=== PATIENT | female | born 1945 | race Caucasian/White ===

== ENCOUNTER 2020-01-27 11:31 | Observation (INO) | payer MEDICARE, OTHER ==
[2020-01-27] MEDS ORDERED: HYDROcodone/Acetaminophen 5/325 mg Tablet PO PRN ×4 (12:00→17:51)
[2020-01-27] MEDS ORDERED: Ondansetron PF 4 MG/2 ML Vial IVP PRN ×2 (12:00→17:49)
[2020-01-27] MEDS ORDERED: Acetaminophen 325 MG TAB PO PRN ×2 (12:00→17:50)
[2020-01-27] MEDS ORDERED: Ondansetron ODT 4 MG TAB SL PRN ×2 (12:00→17:50)
[2020-01-27 12:12] LABS: #Lymphocytes 2.4 thou/uL (1.20-3.40); #Monocytes 0.6 thou/uL (0.11-0.59); #Neutrophils 11.7 thou/uL (1.40-6.50); %Basophils 0.3 % (0.0-1.0); %Eosinophils 0.3 % (0.0-10.0); %Lymphocytes 16.4 % (21.0-51.0); %Monocytes 4.3 % (0.0-10.0); %Neutrophils 78.7 % (42.0-75.0); Hemoglobin 14.1 g/dL (12.0-16.0); Mean Corpuscular HGB CONC 32.7 g/dL (32.0-36.0); Mean Corpuscular Hemoglobin 27.9 pg (27.0-31.0); Mean Corpuscular Volume 85.4 fL (78.0-98.0); Platelet Count 349 thou/uL (130-400); RBC Distribution Width 13.3 % (11.5-14.5); Red Blood Cell (RBC) Count 5.04 mill/uL (4.20-5.40); White Blood Cell (WBC) Count 14.9 thou/uL (4.8-10.8)
[2020-01-27 12:35] LABS: ALT (SGPT) 13 U/L (8-55); AST (SGOT) 15 U/L (5-34); Albumin 4.2 g/dL (3.4-4.8); Alkaline Phosphatase 131 U/L (40-110); Anion Gap 14 mmol/L (10-20); BUN (Urea Nitrogen) 13 mg/dL (9.8-20.1); Bilirubin, Total 0.8 mg/dL (0.2-1.2); Calc. Creatinine Clearance 0 mL/min (70-130); Calcium 10.5 mg/dL (7.8-10.44); Carbon Dioxide 21 mmol/L (23-31); Chloride 102 mmol/L (98-107); Estimated GFR-MDRD 70; Globulin 3.7 g/dL (2.4-3.5); Glucose 157 mg/dL (83-110); Lipase 37 U/L (8-78); Potassium 3.9 mmol/L (3.5-5.1); Protein, Total 7.9 g/dL (6.0-8.3); Sodium 133 mmol/L (136-145)
[2020-01-27] MEDS ORDERED: Morphine 4 MG/ML VIAL ONE ×2 (12:47→14:30)
[2020-01-27] MEDS ORDERED: Ondansetron PF 4 MG/2 ML Vial ONE (12:47)
[2020-01-27 12:53] LABS: Bilirubin Negative (Negative); Blood, Urine Negative (Negative); Clarity Clear (Clear); Glucose, Urine (Dipstick) Normal (Negative); Ketone, Urine Trace mg/dL (Negative); Leukocyte 75 Leu/uL (Negative); Nitrite 1+ (Negative); Protein, Urine (Dipstick) Negative (Neg-Trace); RBC/HPF 0-3 HPF (0-3); Specific Gravity, Urine 1.022 (1.002-1.036); Squamous Epithelial 0-3 HPF (0-3); Urobilinogen Normal mg/dL (Less than 2); pH, Urine 6.5 (5.0-9.0)
[2020-01-27 12:54] LABS: Bacteria/HPF 1+ HPF (None Seen)
--- NOTE | 2020-01-27 14:29 | ULT ---
GALLBLADDER ULTRASOUND: Date: 01/27/2020 HISTORY: Abdominal pain. Nausea and vomiting. FINDINGS: Multiple shadowing gallstones are present without gallbladder wall thickening or pericholecystic flui d. The common duct measures 4.0 mm in diameter. The tail of the pancreas is not visualized. The remai nder of the pancreas is otherwise normal. A transplanted right kidney is present, which has a normal appearance. No free fluid is seen. IMPRESSION: Cholelithiasis. POS: ALLEY
[2020-01-27] MEDS ORDERED: Morphine 4 MG/ML VIAL SLOW IVP PRN ×2 (16:02→17:52)
[2020-01-27 16:11] VITALS: BMI 28.3
[2020-01-27] MEDS: Sodium Chloride 0.9% 1,000 ML IV SCH ×2 (16:56→23:43)
[2020-01-28 06:13] LABS: #Lymphocytes 1.6 thou/uL (1.20-3.40); #Monocytes 1.3 thou/uL (0.11-0.59); #Neutrophils 9.5 thou/uL (1.40-6.50); %Basophils 0.2 % (0.0-1.0); %Eosinophils 0.2 % (0.0-10.0); %Lymphocytes 12.5 % (21.0-51.0); %Monocytes 10.5 % (0.0-10.0); %Neutrophils 76.6 % (42.0-75.0); Hemoglobin 12.7 g/dL (12.0-16.0); Mean Corpuscular HGB CONC 32.7 g/dL (32.0-36.0); Mean Corpuscular Hemoglobin 27.8 pg (27.0-31.0); Mean Platelet Volume 8.3 fL (7.4-10.4); Platelet Count 247 thou/uL (130-400); RBC Distribution Width 13.3 % (11.5-14.5); Red Blood Cell (RBC) Count 4.56 mill/uL (4.20-5.40); White Blood Cell (WBC) Count 12.4 thou/uL (4.8-10.8)
[2020-01-28 06:31] LABS: Anion Gap 10 mmol/L (10-20); BUN (Urea Nitrogen) 9 mg/dL (9.8-20.1); Calc. Creatinine Clearance 78 mL/min (70-130); Calcium 8.8 mg/dL (7.8-10.44); Carbon Dioxide 22 mmol/L (23-31); Chloride 103 mmol/L (98-107); Estimated GFR-MDRD 85; Glucose 108 mg/dL (83-110); Potassium 4.2 mmol/L (3.5-5.1); Sodium 131 mmol/L (136-145)
[2020-01-28] MEDS ORDERED: Propranolol 60 MG TAB PO SCH (09:00)
[2020-01-28] MEDS ORDERED: predniSONE 5 MG TAB PO SCH (09:00)
[2020-01-28] MEDS ORDERED: FLUoxetine HCl 20 MG CAP PO SCH (09:00)
[2020-01-28] MEDS ORDERED: Tacrolimus 1 MG CAP PO SCH (09:00)
[2020-01-28] MEDS ORDERED: Mycophenolate 250 MG CAP PO SCH (09:00)
--- NOTE | 2020-01-28 10:19 | HP ---
CHIEF COMPLAINT: Abdominal pain. HISTORY OF PRESENT ILLNESS: Ms. Costa is a 74-year-old woman, who I saw in my clinic last month for intermittent abdominal and lower chest pain. She had 2 episodes of severe pain radiating from her epigastrium up into her shoulder, back, and arm after eating. They were so severe, she thought she was having a heart attack. She went to the [facility] in [place] after both episodes, and troponins, EKG, and stress testing did not indicate any cardiac problems. She has had intermittent episodes of pain on the right side of her abdomen as well, so her primary care doctor ordered a gallbladder ultrasound, which showed stones. She did not have any fevers, chills, nausea, or vomiting with those episodes. She was actually on the OR schedule for a laparoscopic cholecystectomy last month, but had to cancel her surgery because she fell and broke a couple of ribs and was having a lot of pain with breathing. She has since improved from a respiratory standpoint and was going to call and reschedule her surgery when yesterday she had another severe attack. The pain was in her lower chest area and epigastric area, and she did have nausea and vomiting with this episode. She came to the emergency room because she was unable to tolerate the pain and was admitted because they could not get her pain under control. She is feeling better this morning, although she is still operator brandy to palpation in the right upper quadrant. She is not too nauseated , but she has not had anything to eat or drink since yesterday. She denies any fevers or chills with this episode. She denies any respiratory symptoms. PAST MEDICAL HISTORY: 1. Renal failure, status post renal transplant. 2. Asthma. 3. High blood pressure. OUTPATIENT MEDICATIONS: Include; 1. Fluoxetine 20 mg p.o. daily. 2. Mycophenolate 500 mg 2 tablets twice a day. 3. Prednisone 5 mg p.o. daily. 4. Magnesium oxide 400 mg daily. 5. Pravastatin 20 mg p.o. daily. 6. Vitamin D daily. 7. Tacrolimus 1 mg p.o. b.i.d. 8. Propranolol 60 mg p.o. b.i.d. ALLERGIES: SHE REPORTS RASH WITH PENICILLIN AND IODINE. SOCIAL HISTORY: She does not smoke, drink, or use illicit drugs. She lives with her . PAST SURGICAL HISTORY: Right kidney transplant. PHYSICAL EXAMINATION: VITAL SIGNS: The patient is afebrile since her admission, heart rate 75, respirations 18, 95% saturated on room air, blood pressure 101/61. GENERAL: Reveals a healthy elderly woman, in no acute distress. She is not flushed or toxic in appearance. She is not jaundiced or icteric. HEENT: Unremarkable. NECK: Supple without lymphadenopathy or thyroid nodules. HEART: Regular in its rate and rhythm without murmurs, rubs, or gallops. LUNGS: Clear to auscultation bilaterally. ABDOMEN: Soft and nondistended with a healed right lower quadrant incision. She is tender to palpation in the right upper quadrant and epigastrium, but does not exhibit rigidity, rebound, or guarding. No palpable masses or hernias. EXTREMITIES: Warm and well perfused without edema. NEURO: No focal deficits. PSYCHIATRIC: Alert, oriented, and appropriate. LABORATORY DATA: White count is elevated at 12.4, down from 14.9 in the ER yesterday. Electrolytes are normal. BUN and creatinine are normal. Her alkaline phosphatase is slightly elevated at 131, but other LFTs are normal. Ultrasound in the ER yesterday showed gallbladder stones, but no pericholecystic fluid and a normal common bile duct caliber. Her transplanted kidney has a normal appearance. ASSESSMENT AND PLAN: Cholelithiasis and cholecystitis with acute episode yesterday requiring admission. I have recommended laparoscopic cholecystectomy and since her alkaline phosphatase is mildly elevated, I would also do a cholangiogram, although I feel that this is most likely not related to her gallbladder. The procedure and its inherent risks were discussed with the patient. She understands and accepts these risks and wishes to proceed. She is on scheduled antibiotics. All of her questions were answered. COVID testing has been requested. She is only on low-dose prednisone so stress dose steroids should not be necessary. Job ID: [id number] [facility]
[2020-01-28] MEDS ORDERED: Promethazine HCl 25 MG/ML VIAL IM PRN (12:36)
[2020-01-28] MEDS ORDERED: Ondansetron HCl/PF 4 MG/2 ML Vial IVP PRN (12:36)
[2020-01-28] MEDS ORDERED: Promethazine HCl 25 MG/ML VIAL SLOW IVP PRN (12:36)
[2020-01-28] MEDS ORDERED: Meperidine HCl/PF 25 MG/ML VIAL SLOW IVP PRN (12:36)
[2020-01-28] MEDS ORDERED: Ondansetron PF 4 MG/2 ML Vial ONE (12:50)
[2020-01-28] MEDS ORDERED: PROPOFOL 200 MG/20 ML VIAL ONE (12:50)
[2020-01-28] MEDS ORDERED: Rocuronium Bromide 10 MG/ML (10ML VIAL) ONE (12:50)
[2020-01-28] MEDS ORDERED: Lidocaine 1% PF 5 ML VIAL ONE (12:50)
[2020-01-28] MEDS ORDERED: Hydrocortisone Sod Succ/PF 100 mg/2 ml Vial ONE (12:53)
[2020-01-28] MEDS ORDERED: Bupivacaine 0.25% HCL 30 ML VIAL ONE (13:05)
[2020-01-28] MEDS ORDERED: EPINEPHrine 1 MG/ML AMP ONE (13:05)
[2020-01-28] MEDS ORDERED: Iopamidol 50 ML FS ONE (13:41)
[2020-01-28] MEDS ORDERED: Fentanyl 100 MCG/2 ML VIAL ONE (13:46)
[2020-01-28] MEDS ORDERED: SUGAMMADEX SODIUM 200 MG/2 ML VIAL ONE (15:07)
[2020-01-28 16:14] VITALS: BP 127/75; TEMP 97.8
[2020-01-28] MEDS ORDERED: traMADol HCl 50 MG TAB PO PRN (16:28)
[2020-01-28] MEDS ORDERED: Prevnar 13-Val Conj/PF 0.5 ML SYRINGE IM ONE (16:30)
[2020-01-28] MEDS ORDERED: Acetaminophen 325 MG TAB PO PRN (16:30)
[2020-01-28] MEDS ORDERED: HYDROcodone/Acetaminophen 5/325 mg Tablet PO PRN (16:30)
[2020-01-28 16:55] LABS: SARS-CoV-2 MS2 Positive; SARS-CoV-2 N Gene Negative; SARS-CoV-2 S Gene Negative; SARS-CoV-2 orf1ab Negative
--- NOTE | 2020-01-31 16:30 | PDOC.OP ---
Operative Note - Operative Note Operative Note: DATE OF PROCEDURE: 01/27/2020 PROCEDURES: Laparoscopic cholecystectomy with intraoperative cholangiogram. SURGEON: Bryce Gutierrez M.D. PREOPERATIVE DIAGNOSIS: Cholelithiasis and cholecystitis POSTOPERATIVE DIAGNOSIS: Cholelithiasis and cholecystitis FINDINGS: Distended chronically inflamed gallbladder with acute and chronic omental adhesions. Normal intraoperative cholangiogram. HISTORY: Patient with signs and symptoms of biliary colic, admitted because of acute worsening of symptoms felt to be consistent with acute cholecystitis. Laparoscopic cholecystectomy was recommended for symptomatic relief and prevention of future episodes. Intraoperative cholangiogram was also recommended due to elevation of alkaline phosphatase on preop lab work. PROCEDURE: After informed consent was obtained and appropriate preoperative antibiotics were administered, the patient was taken to the operating room and placed in the supine position and general endotracheal anesthesia was administered. The stomach was decompressed with an OG tube and the abdomen was prepped and draped in standard sterile fashion. Local anesthesia was infused to the skin and subcutaneous tissues at the umbilical level. A transverse skin incision was made. The fascia was elevated and a Veress needle was placed into the abdominal cavity without difficulty. Opening pressure was less than 5 and carbon dioxide gas easily insufflated to an intra-abdominal pressure of 15, which the patient tolerated well. The Veress needle was withdrawn and a Orestes port advanced under direct vision. The abdominal cavity was carefully examined. There was no evidence of Veress needle or of trocar injury. Local anesthesia was infused to the skin and subcutaneous tissues at the epigastric, right upper quadrant, and right lateral abdominal sites and trocars were placed under direct vision of the laparoscope. The fundus of the gallbladder was initially too taut to grasp so this was aspirated with removal of a large amount of clear green bile. This was sent for Gram stain and culture. After removing the bile the fundus was able to be grasped and retracted superiorly. There were extensive omental adhesions to the gallbladder nearly obscuring it. These were stripped inferiorly through the avascular plane using careful electrocautery as necessary until the infundibulum was exposed. The infundibulum was grasped and retracted laterally. The serosa was stripped inferiorly at the level of the neck of the gallbladder exposing the cystic duct and artery which were traced clearly to their insertion in the gallbladder. These were dissected free circumferentially and the cystic duct was clipped at the level of the neck of the gallbladder. The cystic artery was clipped but not divided. An incision was made in the cystic duct inferior to the clip and the cystic duct was palpated with no stones palpable. Clear bile was seen to flow from the cystic duct incision. A cholangiogram catheter was introduced and placed into the cystic duct and secured with a clip. A cholangiogram was obtained which showed an adequate length of cystic duct. There was normal filling of the common bile duct with free flow of contrast into the duodenum. There was normal retrograde flow into the common hepatic duct beyond the level of the bifurcation without filling defects. The cholangiogram catheter was removed and the cystic duct clipped below the incision in the cystic duct. The cystic duct was divided between these clips and the previously placed clip. The cystic artery was clipped and divided between the previously placed clips. The gallbladder was then dissected free of the gallbladder bed using hook electrocautery. Prior to complete removal of the gallbladder from the gallbladder bed, the area of the cystic duct and artery stumps was examined. The clips were in good position completely across these structures and there was no bleeding and no leakage of bile. The gallbladder was then placed into an EndoCatch bag and drawn out through the epigastric incision. The epigastric trocar was replaced and the operative site easily irrigated to clear. There was no significant bleeding or spillage of bile. The epigastric trocar was removed and the fascia closed under direct laparoscopic vision with a 0 Vicryl suture on a GraNee needle in a [id number] manner with excellent technical result. The right upper quadrant and right lateral abdominal trocars were removed and hemostasis verified. Carbon dioxide gas was allowed to desufflate through the umbilical trocar which was then removed. The skin incisions were closed with 4- 0 subcuticular Monocryl sutures and Dermabond dressings were placed. The patient was extubated and taken to the recovery room in good condition. There were no complications. ESTIMATED BLOOD LOSS: Minimal. SPECIMEN : Gallbladder and contents.
== END 2020-01-28 19:24 | disposition home or self-care (01) ==
LOC: ERS 11:31 → SURG A 13:19
PROVIDERS: ADMIT Surgery; ATTEND Surgery
PROC: 0FT44ZZ Resection of Gallbladder, Percutaneous Endoscopic Approach (ICD-10-PCS; principal; 2020-01-27)
PROC: BF031ZZ Plain Radiography of Gallbladder and Bile Ducts using Low Osmolar Contrast (ICD-10-PCS; 2020-01-27)
DX: K80.12 Calculus of gallbladder with acute and chronic cholecystitis without obstruction (principal); I10 Essential (primary) hypertension; E78.5 Hyperlipidemia, unspecified; J45.909 Unspecified asthma, uncomplicated; Z79.899 Other long term (current) drug therapy; Z88.0 Allergy status to penicillin; Z88.8 Allergy status to other drugs, medicaments and biological substances
CPT/HCPCS: 47532; 47563; 76705; 80048; 80053; 83690; 85025 ×2; 87070; 87075; 87205; 88304; 96361; 96374; 96375; 96376; 99285; J1610; U0003; 36415; 81003; 81015; 87077; 87635; 96365; G0378; J0171; J1720; J1956; J2270; J2405; J2704; J3010; J7507; J7517; Q9967; S0020

== ENCOUNTER 2020-10-29 10:13 | Outpatient (CLI) | payer MEDICARE | END 2020-10-29 10:14 | disposition home or self-care (01) | LOC: BICMAMMO 10:13 | PROVIDERS: ATTEND Internal Medicine Endocrinology, Diabetes & Metabolism | DX: M81.0 Age-related osteoporosis without current pathological fracture (principal) | CPT/HCPCS: 77080 ==

== ENCOUNTER 2020-11-01 20:13 | Emergency (ER) | payer MEDICARE ==
[2020-11-01] MEDS ORDERED: HYDROcodone/Acetaminophen 10/325 mg Tablet ONE (21:28)
== END 2020-11-01 23:19 | disposition home or self-care (01) ==
LOC: ERS 20:13
DX: M54.32 Sciatica, left side (principal); E78.5 Hyperlipidemia, unspecified; I10 Essential (primary) hypertension; M81.0 Age-related osteoporosis without current pathological fracture; Z79.899 Other long term (current) drug therapy
CPT/HCPCS: 72131; 72170

== ENCOUNTER 2021-03-05 09:06 | Outpatient (CLI) | payer MEDICARE ==
[2021-03-05 12:47] LABS: Hemoglobin 14.6 g/dL (12.0-15.5); Mean Corpuscular HGB CONC 31.5 g/dL (32.0-36.0); Mean Corpuscular Hemoglobin 26.6 pg (27.0-33.0); Mean Corpuscular Volume 84.5 fl (81.6-98.3); Mean Platelet Volume 10.7 fl (7.4-10.4); Platelet Count 349 10x3/uL (150-450); RBC Distribution Width 14.3 % (11.5-14.5); Red Blood Cell (RBC) Count 5.48 10x6/uL (3.90-5.03); White Blood Cell (WBC) Count 9.7 10x3/uL (3.5-10.5)
[2021-03-05 12:48] LABS: Anion Gap 15 mmol/L (10-20); BUN (Urea Nitrogen) 10 mg/dL (9.8-20.1); Calc. Creatinine Clearance 0 mL/min (70-130); Calcium 11.6 mg/dL (7.8-10.44); Carbon Dioxide 25 mmol/L (23-31); Chloride 103 mmol/L (98-107); Glucose 103 mg/dL (83-110); Potassium 4.9 mmol/L (3.5-5.1); Sodium 138 mmol/L (136-145)
[2021-03-06 01:29] LABS: SARS-CoV-2 PCR by NAA Not Detected (NotDetected)
== END 2021-03-05 09:07 | disposition home or self-care (01) ==
LOC: LABBT 09:06
PROVIDERS: ATTEND Neurological Surgery
DX: Z01.818 Encounter for other preprocedural examination (principal); M43.16 Spondylolisthesis, lumbar region; Z20.822 Contact with and (suspected) exposure to COVID-19
CPT/HCPCS: 80048; 85027; 93005; U0003; U0005; 93010

== ENCOUNTER 2021-03-10 05:52 | Day surgery (SDC) | payer MEDICARE ==
[2021-03-09 12:18] VITALS: BMI 29.9
[2021-03-10] MEDS ORDERED: Bupivacaine PF 0.5% 30 ML VIAL ONE (06:19)
[2021-03-10] MEDS ORDERED: EPINEPHrine 1 MG/ML AMP ONE (06:19)
[2021-03-10] MEDS ORDERED: Thrombin 5000 UNITS/5 ML VIAL ONE (06:19)
[2021-03-10] MEDS ORDERED: SUGAMMADEX SODIUM 200 MG/2 ML VIAL ONE (06:50)
[2021-03-10] MEDS ORDERED: Fentanyl 100 MCG/2 ML VIAL ONE ×2 (06:50→09:39)
[2021-03-10] MEDS ORDERED: Clindamycin/D5W 900 mg/50 ml Premix Bag ONE (06:51)
[2021-03-10] MEDS ORDERED: Levofloxacin 500 mg/D5W 100 ml Premix Bag ONE (06:51)
[2021-03-10] MEDS ORDERED: Ondansetron PF 4 MG/2 ML Vial ONE ×2 (07:05→11:06)
[2021-03-10] MEDS ORDERED: Lidocaine 1% PF 5 ML VIAL ONE (07:05)
[2021-03-10] MEDS ORDERED: PHENYLEPHRINE-NS 100 MCG/ML 10 ML SYRINGE ONE (07:05)
[2021-03-10] MEDS ORDERED: Rocuronium Bromide 10 MG/ML (10ML VIAL) ONE (07:05)
[2021-03-10] MEDS ORDERED: Glycopyrrolate 0.2 MG/ML 5 ML SYRINGE ONE (07:05)
[2021-03-10] MEDS ORDERED: PROPOFOL 200 MG/20 ML VIAL ONE (07:05)
[2021-03-10] MEDS ORDERED: HYDROcodone/Acetaminophen 5/325 mg Tablet ONE (11:09)
[2021-03-10] MEDS ORDERED: Ondansetron ODT 4 MG TAB ONE (12:32)
== END 2021-03-10 12:50 | disposition home or self-care (01) ==
LOC: SDC 05:52
PROVIDERS: ATTEND Neurological Surgery
PROC: 0SG3071 Fusion of Lumbosacral Joint with Autologous Tissue Substitute, Posterior Approach, Posterior Column, Open Approach (ICD-10-PCS; principal; 2021-03-10)
DX: M43.17 Spondylolisthesis, lumbosacral region (principal); M48.07 Spinal stenosis, lumbosacral region; M54.16 Radiculopathy, lumbar region; J45.909 Unspecified asthma, uncomplicated; I10 Essential (primary) hypertension; Z79.899 Other long term (current) drug therapy; Z88.0 Allergy status to penicillin; Z91.041 Radiographic dye allergy status; Z94.0 Kidney transplant status
CPT/HCPCS: 76000; C1713; C1768; J0171; J0690; J1956; J2405; J2704; J3010; J3490; Q0162; S0020

== ENCOUNTER 2021-05-07 00:47 | Emergency (ER) | payer MEDICARE ==
[2021-05-07 01:50] LABS: #Eosinphils 0.1 thou/uL (0.0-0.7); #Lymphocytes 3.4 thou/uL (1.20-3.40); #Neutrophils 5.8 thou/uL (1.40-6.50); %Basophils 0.2 % (0.0-1.0); %Eosinophils 1.2 % (0.0-10.0); %Lymphocytes 32.8 % (21.0-51.0); %Monocytes 9.6 % (0.0-10.0); %Neutrophils 56.3 % (42.0-75.0); Hemoglobin 12.8 g/dL (12.0-16.0); Mean Corpuscular HGB CONC 33.2 g/dL (32.0-36.0); Mean Corpuscular Hemoglobin 27.3 pg (27.0-31.0); Mean Corpuscular Volume 82.2 fL (78.0-98.0); Mean Platelet Volume 8.1 fL (7.4-10.4); Platelet Count 262 thou/uL (130-400); RBC Distribution Width 13.9 % (11.5-14.5); Red Blood Cell (RBC) Count 4.71 mill/uL (4.20-5.40); White Blood Cell (WBC) Count 10.2 thou/uL (4.8-10.8)
[2021-05-07 02:12] LABS: ALT (SGPT) 8 U/L (8-55); AST (SGOT) 13 U/L (5-34); Alkaline Phosphatase 129 U/L (40-110); Anion Gap 13 mmol/L (10-20); BUN (Urea Nitrogen) 12 mg/dL (9.8-20.1); Bilirubin, Total 0.3 mg/dL (0.2-1.2); Calc. Creatinine Clearance 0 mL/min (70-130); Calcium 10.3 mg/dL (7.8-10.44); Carbon Dioxide 22 mmol/L (23-31); Chloride 106 mmol/L (98-107); Globulin 3.4 g/dL (2.4-3.5); Glucose 120 mg/dL (83-110); Potassium 3.8 mmol/L (3.5-5.1); Protein, Total 7.4 g/dL (5.8-8.1); Sodium 137 mmol/L (136-145)
== END 2021-05-07 02:32 | disposition home or self-care (01) ==
LOC: ERS 00:47
DX: R07.9 Chest pain, unspecified (principal); E78.5 Hyperlipidemia, unspecified; I12.9 Hypertensive chronic kidney disease with stage 1 through stage 4 chronic kidney disease, or unspecified chronic kidney disease; N18.9 Chronic kidney disease, unspecified; M81.0 Age-related osteoporosis without current pathological fracture
CPT/HCPCS: 36415; 71045; 80053; 84484; 85025; 93005

== ENCOUNTER 2021-07-20 13:54 | Emergency (ER) | payer OTHER, MEDICARE | END 2021-07-20 17:07 | disposition home or self-care (01) | LOC: ERS 13:54 | DX: S93.602A Unspecified sprain of left foot, initial encounter (principal); W01.0XXA Fall on same level from slipping, tripping and stumbling without subsequent striking against object, initial encounter; E78.5 Hyperlipidemia, unspecified; I12.9 Hypertensive chronic kidney disease with stage 1 through stage 4 chronic kidney disease, or unspecified chronic kidney disease; N18.9 Chronic kidney disease, unspecified ==

== ENCOUNTER 2021-08-21 04:01 | Observation (INO) | payer MEDICARE ==
[2021-08-21] MEDS ORDERED: Nitroglycerin 2% Ointment 1 INCH/1 GM Packet ONE (04:29)
[2021-08-21 04:37] LABS: #Eosinphils 0.1 thou/uL (0.0-0.7); #Lymphocytes 2.8 thou/uL (1.20-3.40); #Monocytes 1.1 thou/uL (0.11-0.59); #Neutrophils 6.7 thou/uL (1.40-6.50); %Basophils 0.2 % (0.0-1.0); %Monocytes 10.1 % (0.0-10.0); %Neutrophils 62.7 % (42.0-75.0); Hemoglobin 13.3 g/dL (12.0-16.0); Mean Corpuscular Hemoglobin 27.3 pg (27.0-31.0); Mean Corpuscular Volume 82.6 fL (78.0-98.0); Mean Platelet Volume 7.5 fL (7.4-10.4); Platelet Count 280 thou/uL (130-400); RBC Distribution Width 14.7 % (11.5-14.5); Red Blood Cell (RBC) Count 4.89 mill/uL (4.20-5.40); White Blood Cell (WBC) Count 10.6 thou/uL (4.8-10.8)
[2021-08-21 04:59] LABS: ALT (SGPT) 16 U/L (8-55); AST (SGOT) 15 U/L (5-34); Alkaline Phosphatase 154 U/L (40-110); Anion Gap 12 mmol/L (10-20); BUN (Urea Nitrogen) 12 mg/dL (9.8-20.1); Bilirubin, Total 0.9 mg/dL (0.2-1.2); Calc. Creatinine Clearance 0 mL/min (70-130); Calcium 10.4 mg/dL (7.8-10.44); Carbon Dioxide 22 mmol/L (23-31); Chloride 104 mmol/L (98-107); Globulin 3.7 g/dL (2.4-3.5); Glucose 109 mg/dL (83-110); Potassium 3.8 mmol/L (3.5-5.1); Protein, Total 7.7 g/dL (5.8-8.1); Sodium 134 mmol/L (136-145)
[2021-08-21] MEDS ORDERED: Ondansetron PF 4 MG/2 ML Vial IVP PRN ×2 (05:45→07:14)
[2021-08-21] MEDS ORDERED: Ondansetron ODT 4 MG TAB SL PRN (05:45)
[2021-08-21] MEDS ORDERED: Acetaminophen 325 MG TAB PO PRN ×2 (05:45→07:14)
[2021-08-21 06:33] VITALS: BMI 4043.7
[2021-08-21] MEDS ORDERED: Nitroglycerin 0.4 MG TAB (25 Tab Bottle) SL PRN (07:10)
[2021-08-21] MEDS ORDERED: Ondansetron ODT 4 MG TAB PO PRN (07:14)
[2021-08-21] MEDS ORDERED: FLU VACC QS2021-22(65YR UP)/PF 240 MCG/0.7 ML SYRINGE IM ONE (08:00)
[2021-08-21 08:29] LABS: SARS-CoV-2 NAA Rapid Test Not Detected (NotDetected)
[2021-08-21 08:45] LABS: Lipase 34 U/L (8-78); Magnesium 1.5 mg/dL (1.6-2.6)
[2021-08-21 08:48] LABS: Troponin I Less than 0.010 ng/mL (< 0.028)
[2021-08-21] MEDS ORDERED: Magnesium 2 GM/50 ML 2 GM in Premix Bag 1 BAG IVPB SCH (09:00)
[2021-08-21] MEDS ORDERED: Amlodipine 5 MG TAB PO SCH (09:30)
[2021-08-21] MEDS ORDERED: Propranolol 60 MG TAB PO SCH (09:45)
[2021-08-21 12:56] LABS: Troponin I Less than 0.010 ng/mL (< 0.028)
[2021-08-21 14:29] LABS: Free T4 (Free Thyroxine) 1.18 ng/dL (0.70-1.48)
[2021-08-21] MEDS: Nitroglycerin 2% Ointment 1 INCH/1 GM Packet TOP SCH ×3 (14:55→22:12)
[2021-08-21] MEDS ORDERED: Simvastatin 10 MG TAB PO SCH (21:00)
[2021-08-21] MEDS: Mycophenolate 250 MG CAP PO SCH (21:10)
[2021-08-21] MEDS: Magnesium Oxide 250 MG TAB PO SCH (21:10)
[2021-08-21] MEDS: TICAGRELOR 90 MG TABLET PO SCH (21:10)
[2021-08-21] MEDS: Amlodipine 5 MG TAB PO SCH (21:11)
[2021-08-22 05:24] LABS: #Eosinphils 0.1 thou/uL (0.0-0.7); #Lymphocytes 2.3 thou/uL (1.20-3.40); #Monocytes 0.9 thou/uL (0.11-0.59); #Neutrophils 3.9 thou/uL (1.40-6.50); %Basophils 0.3 % (0.0-1.0); %Eosinophils 1.5 % (0.0-10.0); %Lymphocytes 31.6 % (21.0-51.0); %Monocytes 11.8 % (0.0-10.0); %Neutrophils 54.8 % (42.0-75.0); Hemoglobin 11.9 g/dL (12.0-16.0); Mean Corpuscular HGB CONC 32.9 g/dL (32.0-36.0); Mean Corpuscular Hemoglobin 27.2 pg (27.0-31.0); Mean Corpuscular Volume 82.6 fL (78.0-98.0); Mean Platelet Volume 7.6 fL (7.4-10.4); Platelet Count 238 thou/uL (130-400); RBC Distribution Width 14.6 % (11.5-14.5); Red Blood Cell (RBC) Count 4.39 mill/uL (4.20-5.40); White Blood Cell (WBC) Count 7.2 thou/uL (4.8-10.8)
[2021-08-22] MEDS: Nitroglycerin 2% Ointment 1 INCH/1 GM Packet TOP SCH (05:38)
[2021-08-22 05:55] LABS: Anion Gap 12 mmol/L (10-20); BUN (Urea Nitrogen) 11 mg/dL (9.8-20.1); Calc. Creatinine Clearance 73 mL/min (70-130); Calcium 9.9 mg/dL (7.8-10.44); Carbon Dioxide 23 mmol/L (23-31); Chloride 104 mmol/L (98-107); Glucose 98 mg/dL (83-110); Magnesium 1.8 mg/dL (1.6-2.6); Potassium 3.7 mmol/L (3.5-5.1); Sodium 135 mmol/L (136-145)
[2021-08-22] MEDS: Amlodipine 5 MG TAB PO SCH (08:51)
[2021-08-22] MEDS: Mycophenolate 250 MG CAP PO SCH (08:51)
[2021-08-22] MEDS: Magnesium Oxide 250 MG TAB PO SCH (08:51)
[2021-08-22] MEDS: TICAGRELOR 90 MG TABLET PO SCH (08:52)
[2021-08-22] MEDS ORDERED: Clopidogrel Bisulfate 75 MG TAB PO SCH (09:00)
[2021-08-22] MEDS ORDERED: Aspirin Chewable 81 MG TAB PO SCH ×2 (09:00)
[2021-08-22] MEDS ORDERED: FLUoxetine HCl 20 MG CAP PO SCH (09:00)
[2021-08-22] MEDS ORDERED: Atorvastatin Calcium 40 MG TAB PO SCH (09:00)
[2021-08-22] MEDS ORDERED: Tacrolimus 1 MG CAP PO SCH (09:00)
[2021-08-22] MEDS ORDERED: Propranolol 60 MG TAB PO SCH (09:00)
[2021-08-22 15:47] VITALS: BP 114/71; TEMP 97.7
== END 2021-08-22 16:11 | disposition home or self-care (01) ==
LOC: ERS 04:01 → 2NO 05:39
PROVIDERS: ADMIT Student in an Organized Health Care Education/Training Program; ATTEND Internal Medicine
DX: I25.110 Atherosclerotic heart disease of native coronary artery with unstable angina pectoris (principal); I12.9 Hypertensive chronic kidney disease with stage 1 through stage 4 chronic kidney disease, or unspecified chronic kidney disease; N18.9 Chronic kidney disease, unspecified; E78.5 Hyperlipidemia, unspecified; J45.909 Unspecified asthma, uncomplicated; F32.9 Major depressive disorder, single episode, unspecified; M81.0 Age-related osteoporosis without current pathological fracture; E66.9 Obesity, unspecified; Z68.28 Body mass index [BMI] 28.0-28.9, adult; Z23 Encounter for immunization; Z79.02 Long term (current) use of antithrombotics/antiplatelets; Z79.1 Long term (current) use of non-steroidal anti-inflammatories (NSAID); Z79.52 Long term (current) use of systemic steroids; Z79.82 Long term (current) use of aspirin; Z79.899 Other long term (current) drug therapy; Z88.0 Allergy status to penicillin; Z91.041 Radiographic dye allergy status; Z94.0 Kidney transplant status; Z95.5 Presence of coronary angioplasty implant and graft; Z20.822 Contact with and (suspected) exposure to COVID-19
CPT/HCPCS: 71045; 80048; 83690; 83735 ×2; 83880; 84439; 84481; 84484 ×2; 85025; 90662; 93005; 94760; 96374; 99285; G0008; G0378 ×3; U0002; 36415; 80053; 84443; 90471; J3475; J7507; J7517

== ENCOUNTER 2022-06-26 09:47 | Emergency (ER) | payer MEDICARE ==
[2022-06-26 10:47] LABS: #Eosinphils 0.1 thou/uL (0.0-0.7); #Lymphocytes 1.8 thou/uL (1.20-3.40); #Monocytes 0.8 thou/uL (0.11-0.59); %Eosinophils 0.6 % (0.0-10.0); %Monocytes 7.7 % (0.0-10.0); %Neutrophils 74.8 % (42.0-75.0); Hemoglobin 12.3 g/dL (12.0-16.0); Mean Corpuscular HGB CONC 33.6 g/dL (32.0-36.0); Mean Corpuscular Hemoglobin 28.5 pg (27.0-31.0); Mean Platelet Volume 7.8 fL (7.4-10.4); Platelet Count 294 10x3/uL (130-400); RBC Distribution Width 14.1 % (11.5-14.5); White Blood Cell (WBC) Count 10.6 10x3/uL (4.8-10.8)
[2022-06-26 11:07] LABS: ALT (SGPT) 9 U/L (8-55); AST (SGOT) 12 U/L (5-34); Albumin 3.9 g/dL (3.4-4.8); Alkaline Phosphatase 143 U/L (40-110); Anion Gap 13 mmol/L (10-20); BUN (Urea Nitrogen) 11 mg/dL (9.8-20.1); Bilirubin, Total 0.7 mg/dL (0.2-1.2); Calc. Creatinine Clearance 0 mL/min (70-130); Calcium 9.8 mg/dL (7.8-10.44); Carbon Dioxide 21 mmol/L (23-31); Chloride 105 mmol/L (98-107); Estimated GFR 83; Globulin 3.2 g/dL (2.4-3.5); Glucose 136 mg/dL (83-110); Potassium 3.7 mmol/L (3.5-5.1); Protein, Total 7.1 g/dL (5.8-8.1); Sodium 135 mmol/L (136-145)
[2022-06-26 11:23] LABS: SARS-CoV-2 NAA Rapid Test Not Detected (NotDetected)
== END 2022-06-26 12:30 | disposition home or self-care (01) ==
LOC: ERS 09:47
DX: J34.89 Other specified disorders of nose and nasal sinuses (principal); M54.50 Low back pain, unspecified; M79.605 Pain in left leg; I10 Essential (primary) hypertension; E78.5 Hyperlipidemia, unspecified; Z79.899 Other long term (current) drug therapy; Z79.82 Long term (current) use of aspirin; Z20.822 Contact with and (suspected) exposure to COVID-19
CPT/HCPCS: 0240U; 71045; 80053; 85025; 36415

== ENCOUNTER 2023-12-12 14:50 | Emergency (ER) | payer MEDICARE ==
[2023-12-12] MEDS ORDERED: Dexamethasone 10 MG/ML VIAL ONE (17:11)
== END 2023-12-12 17:35 | disposition home or self-care (01) ==
LOC: ERS 14:50
DX: R20.2 Paresthesia of skin (principal); I12.9 Hypertensive chronic kidney disease with stage 1 through stage 4 chronic kidney disease, or unspecified chronic kidney disease; N18.9 Chronic kidney disease, unspecified; Z79.82 Long term (current) use of aspirin; Z79.899 Other long term (current) drug therapy
CPT/HCPCS: 96372; 99283; J1100

== ENCOUNTER 2023-12-27 08:12 | Outpatient (CLI) | payer MEDICARE | END 2023-12-27 08:13 | disposition home or self-care (01) | LOC: BICMAMMO 08:12 | PROVIDERS: ATTEND Internal Medicine Endocrinology, Diabetes & Metabolism | DX: M81.0 Age-related osteoporosis without current pathological fracture (principal); M85.851 Other specified disorders of bone density and structure, right thigh | CPT/HCPCS: 77080 ==

== ENCOUNTER 2024-01-24 08:06 | Emergency (ER) | payer MEDICARE ==
[2024-01-24] MEDS ORDERED: Iopamidol-370 76% 500 ML MDV (1 ML CHARGE) ONE (09:11)
[2024-01-24 09:55] LABS: #Basophils Less than 0.03 10x3/uL (0.0-0.2); %Basophils 0.1 % (0.0-1.0); %Eosinophils 0.7 % (0.0-10.0); %Lymphocytes 28.4 % (21.0-51.0); %Monocytes 9.5 % (0.0-10.0); %Neutrophils 61.1 % (42.0-75.0); Hematocrit 35.5 % (36.0-47.0); Hemoglobin 11.6 g/dL (12.0-16.0); Mean Corpuscular HGB CONC 32.7 g/dL (32.0-36.0); Mean Corpuscular Volume 88.8 fL (78.0-98.0); Mean Platelet Volume 10.5 fL (7.4-10.4); Platelet Count 251 10x3/uL (130-400); RBC Distribution Width 14.1 % (11.5-14.5)
[2024-01-24 10:13] LABS: Anion Gap 12 mmol/L (10-20); BUN (Urea Nitrogen) 18 mg/dL (9.8-20.1); Calc. Creatinine Clearance 0 mL/min (70-130); Carbon Dioxide 25 mmol/L (23-31); Chloride 106 mmol/L (98-107); Potassium 4.1 mmol/L (3.5-5.1); Sodium 139 mmol/L (136-145)
[2024-01-24 10:14] LABS: ALT (SGPT) 14 U/L (8-55); AST (SGOT) 14 U/L (5-34); Albumin 3.6 g/dL (3.4-4.8); Alkaline Phosphatase 106 U/L (40-110); Bilirubin, Total 0.9 mg/dL (0.2-1.2); Calcium 10.7 mg/dL (7.8-10.44); Estimated GFR 72; Globulin 3.1 g/dL (2.4-3.5); Glucose 124 mg/dL (83-110); Protein, Total 6.7 g/dL (5.8-8.1)
[2024-01-24 10:27] LABS: Troponin I Less than 0.010 ng/mL (< 0.028)
[2024-01-24] MEDS ORDERED: diphenhydrAMINE 50 MG/ML VIAL ONE (10:27)
[2024-01-24] MEDS ORDERED: Famotidine/PF 20 mg/2ml Vial ONE (10:27)
[2024-01-24] MEDS ORDERED: methylPREDNISolone Sod Succ 40 MG VIAL ONE (10:28)
[2024-01-24 11:01] LABS: Bacteria/HPF 4+ HPF (None Seen); Bilirubin Negative (Negative); Blood, Urine Trace (Negative); CAUTI Indications for Culture Fever or rigors; Clarity Turbid (Clear); Glucose, Urine (Dipstick) Normal (Negative); Ketone, Urine Negative (Negative); Leukocyte 500 Leu/uL (Negative); Nitrite 2+ (Negative); Protein, Urine (Dipstick) Negative (Neg-Trace); Specific Gravity, Urine 1.013 (1.002-1.036); Squamous Epithelial 0-3 HPF (0-3); Urobilinogen Normal mg/dL (Less than 2); WBC/HPF Greater than 50 HPF (0-3); pH, Urine 6.5 (5.0-9.0)
[2024-01-24 11:04] LABS: Urine Culture Reflex Yes Yes
[2024-01-24] MEDS ORDERED: cefTRIAXone (ROCEPHIN) 1 GM VIAL ONE (12:10)
[2024-01-24] MEDS ORDERED: Sodium Chloride 0.9% 100 ML ONE (12:10)
== END 2024-01-24 13:20 | disposition home or self-care (01) ==
LOC: ERS 08:06
DX: N39.0 Urinary tract infection, site not specified (principal); I12.9 Hypertensive chronic kidney disease with stage 1 through stage 4 chronic kidney disease, or unspecified chronic kidney disease; N18.9 Chronic kidney disease, unspecified
CPT/HCPCS: 70496; 70498; 71046; 80053; 81001; 84484; 85025; 87077; 87086; 87186; 93005; J0696; J1200; J2920; J3490; Q9967; S0028; 36415; 96374; 96375

== ENCOUNTER 2024-03-06 08:15 | Outpatient (CLI) | payer MEDICARE | END 2024-03-06 08:16 | disposition home or self-care (01) | LOC: SCSMRI 08:15 | PROVIDERS: ATTEND Surgery | DX: M47.812 Spondylosis without myelopathy or radiculopathy, cervical region (principal); M47.26 Other spondylosis with radiculopathy, lumbar region; M43.17 Spondylolisthesis, lumbosacral region; M43.12 Spondylolisthesis, cervical region; M50.322 Other cervical disc degeneration at C5-C6 level; M50.323 Other cervical disc degeneration at C6-C7 level; E04.2 Nontoxic multinodular goiter; M48.061 Spinal stenosis, lumbar region without neurogenic claudication; M48.07 Spinal stenosis, lumbosacral region; Z98.1 Arthrodesis status | CPT/HCPCS: 72050; 72120; 72141; 72148 ==

== ENCOUNTER 2024-04-12 23:39 | Emergency (ER) | payer MEDICARE ==
[2024-04-13 00:48] LABS: #Basophils Less than 0.03 10x3/uL (0.0-0.2); %Basophils 0.1 % (0.0-1.0); %Eosinophils 0.8 % (0.0-10.0); %Lymphocytes 34.6 % (21.0-51.0); %Monocytes 9.4 % (0.0-10.0); %Neutrophils 54.9 % (42.0-75.0); Hematocrit 36.1 % (36.0-47.0); Mean Corpuscular HGB CONC 33.2 g/dL (32.0-36.0); Mean Corpuscular Hemoglobin 29.1 pg (27.0-31.0); Mean Corpuscular Volume 87.6 fL (78.0-98.0); Mean Platelet Volume 9.8 fL (7.4-10.4); Platelet Count 287 10x3/uL (130-400); RBC Distribution Width 12.8 % (11.5-14.5); Red Blood Cell (RBC) Count 4.12 mill/uL (4.20-5.40)
[2024-04-13 01:25] LABS: ALT (SGPT) 7 U/L (8-55); AST (SGOT) 9 U/L (5-34); Albumin 3.4 g/dL (3.4-4.8); Alkaline Phosphatase 113 U/L (40-110); Anion Gap 14 mmol/L (10-20); BUN (Urea Nitrogen) 15 mg/dL (9.8-20.1); Bilirubin, Total 0.7 mg/dL (0.2-1.2); Calc. Creatinine Clearance 0 mL/min (70-130); Calcium 10.6 mg/dL (7.8-10.44); Carbon Dioxide 21 mmol/L (23-31); Chloride 104 mmol/L (98-107); Estimated GFR 81; Globulin 3.5 g/dL (2.4-3.5); Glucose 129 mg/dL (83-110); Potassium 3.9 mmol/L (3.5-5.1); Protein, Total 6.9 g/dL (5.8-8.1); Sodium 135 mmol/L (136-145)
[2024-04-13 02:34] LABS: Bacteria/HPF 3+ HPF (None Seen); Bilirubin Negative (Negative); Blood, Urine 2+ (Negative); CAUTI Indications for Culture Dysuria,urgency,freq; Clarity Turbid (Clear); Glucose, Urine (Dipstick) Normal (Negative); Ketone, Urine Negative (Negative); Leukocyte 500 Leu/uL (Negative); Nitrite Negative (Negative); Protein, Urine (Dipstick) Negative (Neg-Trace); RBC/HPF 21-50 HPF (0-3); Squamous Epithelial 0-3 HPF (0-3); Urobilinogen Normal mg/dL (Less than 2); WBC/HPF Greater than 50 HPF (0-3); pH, Urine 6.5 (5.0-9.0)
[2024-04-13 02:36] LABS: Urine Culture Reflex Yes Yes
[2024-04-13] MEDS ORDERED: Ciprofloxacin 500 MG TAB ONE (02:57)
== END 2024-04-13 02:30 | disposition home or self-care (01) ==
LOC: ERS 23:39
DX: N81.10 Cystocele, unspecified (principal); N39.0 Urinary tract infection, site not specified; I12.9 Hypertensive chronic kidney disease with stage 1 through stage 4 chronic kidney disease, or unspecified chronic kidney disease; N18.9 Chronic kidney disease, unspecified
CPT/HCPCS: 51701; 80053; 81001; 83605; 85025; 87040; 87077; 87086; 87186; 99284

== ENCOUNTER 2024-05-26 21:07 | Emergency (ER) | payer MEDICARE ==
[2024-05-26] MEDS ORDERED: Acetaminophen 325 MG TAB ONE (22:49)
== END 2024-05-26 23:15 | disposition home or self-care (01) ==
LOC: ERS 21:07
DX: S93.601A Unspecified sprain of right foot, initial encounter (principal); I12.9 Hypertensive chronic kidney disease with stage 1 through stage 4 chronic kidney disease, or unspecified chronic kidney disease; N18.9 Chronic kidney disease, unspecified; Z94.0 Kidney transplant status
CPT/HCPCS: 99283

== ENCOUNTER 2024-06-27 07:17 | Observation (INO) | payer MEDICARE ==
[2024-06-27] MEDS ORDERED: Lidocaine 2% PF 5 ML VIAL ONE (07:58)
[2024-06-27] MEDS ORDERED: PROPOFOL 20 ML ONE (07:58)
[2024-06-27] MEDS ORDERED: Rocuronium Bromide 10 MG/ML (10ML VIAL) ONE (07:58)
[2024-06-27] MEDS ORDERED: LevoFLOXacin D5W 500 mg (100 mL) BAG ONE (08:48)
[2024-06-27] MEDS ORDERED: Clindamycin/D5W 900 mg/50 ml Premix Bag ONE (08:48)
[2024-06-27] MEDS ORDERED: fentaNYL PF 100 MCG/2 ML SYRINGE ONE ×3 (09:09→12:29)
[2024-06-27] MEDS ORDERED: Thrombin 5000 UNITS/5 ML VIAL ONE (09:20)
[2024-06-27 09:30] LABS: #Basophils Less than 0.03 10x3/uL (0.0-0.2); %Basophils 0.1 % (0.0-1.0); %Eosinophils 0.6 % (0.0-10.0); %Lymphocytes 30.5 % (21.0-51.0); %Monocytes 10.3 % (0.0-10.0); %Neutrophils 58.2 % (42.0-75.0); Hematocrit 37.1 % (36.0-47.0); Hemoglobin 12.2 g/dL (12.0-16.0); Mean Corpuscular HGB CONC 32.9 g/dL (32.0-36.0); Mean Corpuscular Hemoglobin 28.1 pg (27.0-31.0); Mean Corpuscular Volume 85.5 fL (78.0-98.0); Mean Platelet Volume 10.2 fL (7.4-10.4); Platelet Count 285 10x3/uL (130-400); RBC Distribution Width 14.7 % (11.5-14.5); Red Blood Cell (RBC) Count 4.34 mill/uL (4.20-5.40)
[2024-06-27 09:43] LABS: INR-International Normal Ratio 0.9; Prothrombin Time 12.2 sec (12.0-14.7)
[2024-06-27 09:44] LABS: PTT 28.8 sec (22.9-36.1)
[2024-06-27 09:45] LABS: Anion Gap 14 mmol/L (10-20); BUN (Urea Nitrogen) 14 mg/dL (9.8-20.1); Calc. Creatinine Clearance 64 mL/min (70-130); Carbon Dioxide 21 mmol/L (23-31); Chloride 103 mmol/L (98-107); Estimated GFR 90; Glucose 119 mg/dL (83-110); Potassium 3.9 mmol/L (3.5-5.1); Sodium 134 mmol/L (136-145)
[2024-06-27] MEDS ORDERED: Dexamethasone 4 mg/ml Vial ONE (10:02)
[2024-06-27] MEDS ORDERED: Glycopyrrolate 0.2 MG/ML 5 ML SYRINGE ONE (10:11)
[2024-06-27] MEDS ORDERED: PHENYLEPHRINE-NS 100 MCG/ML 10 ML SYRINGE ONE (10:11)
[2024-06-27] MEDS ORDERED: Ondansetron PF 4 MG/2 ML Vial ONE (10:21)
[2024-06-27] MEDS ORDERED: SUGAMMADEX SODIUM 200 MG/2 ML VIAL ONE (10:22)
[2024-06-27] MEDS ORDERED: Mag-Al 1200 mg/1200 mg/30 ML UDCUP PO PRN (12:08)
[2024-06-27] MEDS ORDERED: traMADol HCl 50 MG TAB PO PRN (12:08)
[2024-06-27] MEDS ORDERED: Morphine 2 MG/ML VIAL SLOW IVP PRN (12:08)
[2024-06-27] MEDS ORDERED: Ondansetron PF 4 MG/2 ML Vial IVP PRN (12:08)
[2024-06-27] MEDS ORDERED: Acetaminophen/Codeine 30-300mg Tablet PO PRN (12:08)
[2024-06-27] MEDS ORDERED: diphenhydrAMINE 25 MG CAP PO PRN (12:08)
[2024-06-27] MEDS ORDERED: Milk Of Magnesia 30 ML UDCUP PO PRN (12:08)
[2024-06-27] MEDS ORDERED: Ketorolac Tromethamine 30 MG (1 mL) VIAL IVP PRN (12:10)
[2024-06-27] MEDS ORDERED: oxyCODONE 5 MG TAB PO PRN (12:10)
[2024-06-27] MEDS ORDERED: hydrALAZINE 20 MG/ML VIAL SLOW IVP PRN (12:13)
[2024-06-27] MEDS ORDERED: Benzocaine/Menthol 1 LOZ LOZ PO PRN (12:13)
[2024-06-27] MEDS ORDERED: Ergocalciferol 1.25 MG(50,000 UNITS) CAP PO SCH (12:15)
[2024-06-27] MEDS ORDERED: Methocarbamol 500 MG TAB PO PRN (12:15)
[2024-06-27] MEDS: Sodium Chloride 0.9% 1,000 ML IV SCH (17:16)
[2024-06-27] MEDS: Clindamycin/D5W 900 MG in Premix 1 BAG IVPB SCH (17:16)
[2024-06-27 17:30] VITALS: BMI 27.1
[2024-06-27] MEDS: Mycophenolate 250 MG CAP PO SCH (22:45)
[2024-06-27] MEDS: Ranolazine ER 500 MG TAB PO SCH (22:45)
[2024-06-27] MEDS: Tacrolimus 1 MG CAP PO SCH (22:45)
[2024-06-27] MEDS: Magnesium Oxide 400 MG TAB PO SCH (22:49)
[2024-06-28] MEDS ORDERED: ABALOPARATIDE IM SCH (09:00)
[2024-06-28] MEDS: Cholecalciferol 1,000 UNITS (25 MCG) TAB PO SCH (09:00)
[2024-06-28] MEDS: Atorvastatin Calcium 40 MG TAB PO SCH (09:01)
[2024-06-28] MEDS: Amlodipine 5 MG TAB PO SCH (09:01)
[2024-06-28] MEDS: Methimazole 5 MG TAB PO SCH (09:01)
[2024-06-28] MEDS: Isosorbide Mononitrate 30 MG ER.TAB PO SCH (09:02)
[2024-06-28] MEDS: Propranolol HCl LA 60 MG CAP PO SCH (09:03)
[2024-06-28] MEDS: Acetaminophen 325 MG TAB PO PRN (12:08)
[2024-06-28 13:21] VITALS: BP 119/70; TEMP 97.6
[2024-06-28 13:45] VITALS: BMI 27.1
[2024-06-29] MEDS ORDERED: FLU (Fluad Triv) TS24-25 (65UP)/MF59C/PF 45 MCG/0.5 ML Syringe IM ONE (09:00)
== END 2024-06-28 04:09 | disposition home or self-care (01) ==
LOC: SDC 07:17 → SURG B 12:07
PROVIDERS: ADMIT Surgery; ATTEND Surgery
PROC: 0RG20A0 Fusion of 2 or more Cervical Vertebral Joints with Interbody Fusion Device, Anterior Approach, Anterior Column, Open Approach (ICD-10-PCS; principal; 2024-06-27)
PROC: 0RG2070 Fusion of 2 or more Cervical Vertebral Joints with Autologous Tissue Substitute, Anterior Approach, Anterior Column, Open Approach (ICD-10-PCS; 2024-06-27)
DX: M48.02 Spinal stenosis, cervical region (principal); M54.12 Radiculopathy, cervical region; M50.01 Cervical disc disorder with myelopathy, high cervical region; Z88.0 Allergy status to penicillin; Z91.041 Radiographic dye allergy status; Z88.8 Allergy status to other drugs, medicaments and biological substances
CPT/HCPCS: 20930; 20936; 22551; 22845; 22852; 22853 ×2; 80048; 85025; 85610; 85730; 93005; C1713 ×5; J1100; J1956; J2405; J2704; J3490 ×2; J7030; 93010; J7507; J7517

== ENCOUNTER 2024-06-30 02:00 | Emergency (ER) | payer MEDICARE | END 2024-06-30 03:50 | disposition home or self-care (01) | LOC: ERS 02:00 | DX: M96.89 Other intraoperative and postprocedural complications and disorders of the musculoskeletal system (principal); E04.1 Nontoxic single thyroid nodule; I10 Essential (primary) hypertension | CPT/HCPCS: 70490 ==

== ENCOUNTER 2024-08-02 10:24 | Outpatient (CLI) | payer MEDICARE | END 2024-08-02 10:25 | disposition home or self-care (01) | LOC: RAD 10:24 | PROVIDERS: ATTEND Surgery | DX: M48.02 Spinal stenosis, cervical region (principal); M47.12 Other spondylosis with myelopathy, cervical region; Z98.1 Arthrodesis status | CPT/HCPCS: 72040 ==

== ENCOUNTER 2024-08-28 07:57 | Outpatient (CLI) | payer MEDICARE | END 2024-08-28 07:58 | disposition home or self-care (01) | LOC: CT 07:57 | PROVIDERS: ATTEND Surgery | DX: M21.372 Foot drop, left foot (principal); M48.061 Spinal stenosis, lumbar region without neurogenic claudication; M48.07 Spinal stenosis, lumbosacral region | CPT/HCPCS: 72131 ==